=== PATIENT | male | born 1995 | race Caucasian/White ===

== ENCOUNTER 2018-11-04 21:11 | Emergency (ER) | payer BC, OTHER ==
[~2018-11-04] VITALS: Ht 167.6 cm; Wt 85.9 kg
[2018-11-04 21:50] LABS: HEMATOCRIT 53.7 % (42.0-52.0); HEMOGLOBIN 18.2 g/dl (13.5-17.5); MEAN CORPUSCULAR HEMOGLOBIN 28.7 pg (27.0-33.0); MEAN CORPUSCULAR HGB CONC 33.9 g/dl (32.0-36.5); MEAN CORPUSCULAR VOLUME 84.7 fl (80.0-96.0); PLATELET COUNT, AUTOMATED 219 10^3/uL (150-450); RED BLOOD COUNT 6.34 10^6/uL (4.30-6.10); WHITE BLOOD COUNT 20.2 10^3/uL (4.0-10.0)
[2018-11-04 22:13] LABS: BASO # 0.1 10^3/uL (0.0-0.2); BASO % 0.2 % (0.0-1.0); EOS % 0.2 % (0.0-3.0); LYMPH # 1.1 10^3/uL (1.5-6.5); LYMPH % 5.5 % (24.0-44.0); MONO # 1.4 10^3/uL (0.0-0.8); MONO % 6.8 % (0.0-5.0); NEUTROPHILS # 17.5 10^3/uL (1.8-7.7); NEUTROPHILS % 86.8 % (36.0-66.0)
[2018-11-04 22:29] LABS: BLOOD UREA NITROGEN 20 MG/DL (7-18); CALCIUM LEVEL 9.3 MG/DL (8.5-10.1); CARBON DIOXIDE LEVEL 26 MEQ/L (21-32); CHLORIDE LEVEL 105 MEQ/L (98-107); CREATININE FOR GFR 1.17 MG/DL (0.70-1.30); GLOMERULAR FILTRATION RATE > 60.0 (>60); GLUCOSE, FASTING 108 MG/DL (70-100); POTASSIUM SERUM 4.8 MEQ/L (3.5-5.1); SODIUM LEVEL 139 MEQ/L (136-145)
[2018-11-04] MEDS ORDERED: NS 1,000 ML IV ONE ×2 (23:00→23:45)
[2018-11-04] MEDS ORDERED: ACETAMINOPHEN TAB 650MG DOSE (2X325MG) PO ONE (23:45)
[2018-11-05 00:17] LABS: ALBUMIN 4.2 GM/DL (3.2-5.2); ALT/SGPT 66 U/L (12-78); BILIRUBIN,DIRECT < 0.1 MG/DL (0.0-0.2); BILIRUBIN,TOTAL 0.5 MG/DL (0.2-1.0)
--- NOTE | 2018-11-05 00:34 | ECGEPIP ---
[facility] - ED Test Date: 2018-11-04 Pat Name: KAUSHAL DALY Department: Room: - Gender: Male Operating Manager: SOFIA : 1995 Requested By: MICHAEL Koch Order Number: [id number] Reading MD: Saravanan Abebe Measurements Intervals [place] Rate: 121 P: 39 TX: 153 QRS: 66 QRSD: 94 T: 31 QT: 280 QTc: 399 Interpretive Statements SINUS TACHYCARDIA Comparison tracing not on file Electronically Signed on 11-05-2018 0:33:52 EDT by Saravanan Abebe
[2018-11-05] MEDS ORDERED: LEVA750T7 PO (00:40)
[2018-11-05 00:45] VITALS: BP 127/62
[2018-11-05] MEDS ORDERED: LevoFLOXacin 750 MG TABLET PO ONE (00:45)
--- NOTE | 2018-11-05 03:26 | REP ---
Clinical: Shortness of breath . Comparison: None . Technique: PA and lateral. Findings: The mediastinum and cardiac silhouette are normal. The lung matt are clear and without acute consolidation, effusion, or pneumothorax. The skeletal structures are intact and normal. Impression: 1. No acute cardiopulmonary process. Electronically Signed by Kermit Thomas MD 11/05/2018 03:17 A
== END 2018-11-05 01:05 | disposition home or self-care (01) ==
LOC: M ED 21:11
DX: R50.9 Fever, unspecified (principal); R07.1 Chest pain on breathing; R00.0 Tachycardia, unspecified; J45.909 Unspecified asthma, uncomplicated; F41.9 Anxiety disorder, unspecified; Z88.3 Allergy status to other anti-infective agents; Z88.4 Allergy status to anesthetic agent